=== PATIENT | male | born 1960 | race Caucasian/White ===

== ENCOUNTER 2025-04-17 08:11 | Outpatient (CLI) | payer BC, SELFPAY ==
--- NOTE | 2025-05-15 09:13 | WPDSLEEPSTUD ---
Sleep Study Date of Study: 04/17/25 Ordering Provider: Pari Rodriguez PA-C Interpreting Physician: Brunilda Sommer DO Sleep Study Type: Split Polysomnogram Height: 1.8 m Weight: 86.183 kg Body Mass Index: 26.4 Neck Circumference (inches): 16 [place]: 22 Reason for Sleep Study Excessive daytime sleepiness Sleep History The patient is a 64-year-old male that had a sleep study ordered by his primary care for re-evaluation of sleep apnea. The patient rarely awakens from sleep her breath. He denies awakening at night with heartburn, belching or cough. He frequently snores loudly enough that others complain. He denies having trouble sleeping when he has a cold. He occasionally has breathing problems at night observed by himself or others. He denies sweating excessively at night. He denies having heart palpitations or irregular heartbeats during the night. He frequently falls asleep during the day and frequently falls asleep while driving. He denies cataplexy and sleep paralysis. He frequently has trouble at school or work due to sleepiness. He occasionally experiences vivid dreamlike scenes upon awakening or falling asleep. He denies feeling afraid of going to sleep. He rarely has nightmares. He occasionally remembers his dreams. He rarely has thoughts racing through his mind. He denies feeling sad or depressed. He occasionally has anxiety. He denies having muscular tension. He denies noticing parts of his body jerk. He denies kicking during the night. He denies having crawling and aching feelings in his legs but rarely has leg pain during the night. He rarely grinds his teeth during sleep rarely awakens with morning jaw pain. He is rarely bothered by pain during the day and rarely awakened by pain during the night. He rarely wakes up feeling stiff in the morning. He rarely wakes up with sore or achy muscles. He rarely wakes up with pain in the neck, spine and other joints. He goes to bed at midnight. He is able to fall asleep relatively quickly. He wakes up twice throughout the night to urinate and is able to fall back asleep between 15-30 minutes. He wakes up at 7:00 a.m.. He typically gets 7 hours of sleep per night. The amount of time he stays in bed after waking up is variable. He currently lives with his . He denies consuming any caffeinated beverages within 2 hours of bedtime. He will engage in physical exercise before bedtime. He denies reading and watching television before falling asleep. He will very rarely take a nap in the afternoon or the evening and is not refreshing. He consumes caffeinated beverages throughout the day. He denies tobacco, alcohol and recreational drug use. [facility] Past Medical History Medical History Hemianopia of left eye ABIODUN (obstructive sleep apnea) uses dental oral device Hypercholesterolemia Testosterone deficiency in male Diabetes mellitus Hypertension Surgical History Surgical History History of tonsillectomy History of rotator cuff surgery Right, 09/2017 Social History Social History Smoking status: Never smoker Alcohol intake: current Alcohol use details: rare Substance use: never Substance use type: does not use Lack of Transportation: No Lack of Food: Never True Current Housing: I Have Housing Concerned About Future Housing: No Difficulty Paying Gas/Electric Bills: No Difficulty Paying for Meds: No Currently Unemployed: No Education: Bachelor's Degree Difficulty w/ Childcare or Family Care: No Living arrangements: with family Occupation/Education: occupation Gender identity (if verbalized by the patient): Male Sexual Orientation (if Verbalized by the Patient): Straight or Heterosexual Medications Home Medications ?Medication ?Instructions ?Recorded ?Confirmed ?Type blood-glucose meter (Accu-Chek #1 ea 11/24/22 02/07/25 Rx Reba Plus Meter) lancets (Accu-Chek Fastclix Lancet #100 ea 11/24/22 02/07/25 Rx Drum) blood sugar diagnostic (Accu-Chek #100 ea 01/01/23 02/07/25 Rx Reba Plus test strips) syringe with needle 3 mL 22 gauge #4 ea 05/22/23 02/07/25 Rx x 1 trandolapril 4 mg tablet 4 mg PO DAILY #90 tabs 07/28/24 02/07/25 Rx rosuvastatin 20 mg tablet 20 mg PO DAILY #90 tabs 10/13/24 02/07/25 Rx blood-glucose sensor (Dexcom G7 #1 ea 02/07/25 02/07/25 Rx Sensor device) blood-glucose transmitter (Dexcom #1 ea 02/07/25 02/07/25 Rx G6 Transmitter device) blood-glucose,manufacturing engineering intern,cont #1 ea 02/07/25 02/07/25 Rx (Dexcom G7 Medical Recruiter) insulin degludec 100 unit/mL (3 15 unit (0.15 mL) subcut DAILY #15 02/10/25 Rx mL) subcutaneous pen (Tresiba mL FlexTouch U-100 insulin) glyburide 2.5 mg-metformin 500 mg 1 tablet PO DAILY #90 tabs 04/03/25 Rx tablet amlodipine 5 mg tablet 5 mg PO DAILY 04/19/25 History pen needle, diabetic 32 gauge x #100 ea 04/24/25 Rx (TRUEplus Pen Needle) dapagliflozin propanediol 10 mg 10 mg PO DAILY #90 tabs 05/15/25 Rx tablet (Farxiga) Sleep Procedure A full night split study using the SiOx SleepEntefy multi-channel system recorded the standard physiologic parameters including EEG, EOG, submentalis EMG, anterior tibialis EMG, EKG, body position, nasal and oral airflow using nasal pressure sensor and thermistor.? Respiratory parameters of chest and abdominal movements were recorded with Respiratory Inductance Plethysmography belts. Oxygen saturation was recorded by pulse oximetry. Video monitoring was also performed. Sleep stages, periodic limb movements, and EEG arousals were scored in 30 second epochs according to the criteria of the AASM Scoring Manual. The Apnea-Hypopnea Index was calculated using CMS guidelines for definition of hypopnea with 4% O2 desaturations while scoring respiratory events. Sleep Architecture During the diagnostic portion of the study, the total recording time was 145.8 minutes. The total sleep time was 134.5 minutes. Sleep latency was 4.3 minutes.? REM latency was 15.5 minutes. Sleep Efficiency was 92.3%. The patient had 2 awakenings for an awakening index of 0.9. Wake after sleep onset time was 7.0 minutes. The patient spent 6.5 minutes, 4.8% of total sleep time in Stage N1. The patient spent 104.5 minutes, 77.7% in Stage N2. The patient spent 2.5 minutes, 1.9% in Stage N3. The patient spent 21.0 minutes, 15.6% in Stage REM sleep. At 01:20:43 AM the patient was placed on PAP treatment and was titrated at pressures ranging from 5 cm H20 up to 16 cm H20. During the treatment portion of the study, the total recording time was 291.6 minutes.? The total sleep time was 263.5 minutes. Sleep latency was 0.0 minutes. REM latency was 78.5 minutes. Sleep Efficiency was 90.4%. Wake after Sleep Onset time was 28.0 minutes. The patient spent 25.5 minutes, 9.7% of total sleep time in Stage N1. The patient spent 209.0 minutes, 79.3% in Stage N2. The patient spent 0.0 minutes, 0.0% in Stage N3. The patient spent 29.0 minutes, 11.0% in Stage REM. Respiratory Analysis During the diagnostic portion of the study, the patient had 28 hypopneas, 51 obstructive apneas, 1 mixed apnea and 1 central apnea for an overall Apnea Hypopnea Index of 36.1 events per hour. The REM Apnea Hypopnea Index was 42.9. The NREM Apnea Hypopnea Index was 35.9. The patient had a Central Apnea Hypopnea Index of 0.4. There was no evidence of Hubert-Mtz Respirations. During the treatment portion of the study, the patient had 19 hypopneas, 69 obstructive apneas, 7 mixed apneas, and 11 central apneas for an overall Apnea Hypopnea Index of 24.1 events per hour. The REM Apnea Hypopnea Index was 14.5. The NREM Apnea Hypopnea Index was 25.3. The patient had a Central Apnea Hypopnea Index of 2.5. There was no evidence of Hubert-Mtz Respirations. The patient was started on CPAP 5 cm H2O and titrated to CPAP 16 cm H2O. The patient was able to fall asleep starting on CPAP 5 cm H2O. The patient was able to achieve REM sleep starting on CPAP 10 cm H2O. The patient was unable to achieve a residual AHI less than 28 with both NREM and REM sleep. Arousals During the diagnostic portion of the study, there were a total of 84 arousals for an arousal index of 37.5.? There were 47 respiratory arousals for an index of 21.0. There were 0 periodic limb movement arousals for an index of 0.? There were 14 isolated limb movement arousals for an index of 6.2. There were 26 spontaneous arousals for an index of 11.6. During the treatment portion of the study, there were a total of 122 arousals for an index of 27.8.? There were 61 respiratory arousals for an index of 13.9. There were 0 periodic limb movement arousals for an index of 0.? There were 27 isolated limb movement arousals for an index of 6.1. There were 35 spontaneous arousals for an index of 8.0. Periodic Limb Movements During the diagnostic portion of the study, the patient had 19 isolated limb movements with an index of 8.5. The patient had 0 periodic limb movements with an index of 0. The patient had a total of 19 limb movements with a total limb movement index of 8.5. During the treatment portion of the study, the patient had 46 isolated limb movements with an index of 10.5. The patient had 0 periodic limb movements with an index of 0. The patient had a total of 46 limb movements with a total limb movement index of 10.5. Oximetry Data During the diagnostic portion of the study, the patient had an average oxygen saturation of 96% in wake with a minimum oxygen saturation of 90% and a maximum oxygen saturation of 98%. The patient had an average oxygen saturation of 93.7% in sleep with a minimum oxygen saturation of 78.0% and a maximum oxygen saturation of 98.0%. The patient had 79 oxygen desaturations resulting in an Oxygen Desaturation Index of 35.2. The patient spent 10.3 minutes, 7% of total sleep time with an oxygen saturation less than 88%. During the treatment portion of the study, the patient had an average oxygen saturation of 95.4% in wake with a minimum oxygen saturation of 88.0% and a maximum oxygen saturation of 98.0%. The patient had an average oxygen saturation of 95.3% in sleep with a minimum oxygen saturation of 85.0% and a maximum oxygen saturation of 98.0%. The patient had 92 oxygen desaturations resulting in an Oxygen Desaturation Index of 20.9. The patient spent 1.4 minutes, 0.5% of total sleep time with an oxygen saturation less than 88%. Snoring Profile Moderate to loud snoring was present in the baseline portion of this study. The snoring did not resolve on the final pressure setting, CPAP 16 cm H2O. Cardiac Profile The EKG lead showed normal sinus rhythm with rare PVCs. On Epoch 86, the patient had an 8 beat run of V-tach. During the diagnostic portion of the study, the average pulse rate was 86.6 bpm.? The minimum pulse rate was 77.0 bpm. The maximum pulse rate was 101.0 bpm. During the treatment portion of the study, the average pulse rate was 86.4 bpm.? The minimum pulse rate was 78.0 bpm. The maximum pulse rate was 99.0 bpm. EEG Profile No signs of seizure activity seen. Assessment and Plan Assessment and Plan (1) ABIODUN (obstructive sleep apnea): Code(s): G47.33 - Obstructive sleep apnea (adult) (pediatric) Status: Acute Assessment and Plan: In the baseline portion of the study, the patient had an overall AHI of 36.1 with desaturation down to 78%. This is consistent with severe sleep apnea. The patient was started on CPAP 5 cm H2O and titrated to CPAP 16 cm H2O. We were unable to find a pressure setting that resolved the patient's sleep apnea. I recommend that the patient have a CPAP Titration starting on CPAP 12 cm H2O with the use of a hypnotic. Given the severity of the patient's sleep apnea, she is not an appropriate candidate for a mandibular advancement device. The patient would a be a candidate for Inspire if she was interested. (2) Ventricular tachycardia: Code(s): I47.20 - Ventricular tachycardia, unspecified Status: Acute Assessment and Plan: On Epoch 86, the patient had an 8 beat run of ventricular tachycardia. I recommend that the patient have a Holter monitor for further evaluation. Data The data obtained during this sleep study is adequate for interpretation. Certification This sleep study has been reviewed by a board certified sleep medicine physician.
[2025-05-16 20:05] VITALS: BMI 26.4
== END 2025-04-18 07:16 | disposition home or self-care (01) ==
PROVIDERS: PCP Physician Assistant Medical; Visit Provider Physician Assistant Medical
DX: G47.33 Obstructive sleep apnea (adult) (pediatric) (principal); I47.20 Ventricular tachycardia, unspecified
CPT/HCPCS: 95811